=== PATIENT | male | born 1980 | race Caucasian/White ===

== ENCOUNTER 2017-06-13 09:30 | Inpatient (IN) | payer BC ==
[2017-06-13 10:19] VITALS: BMI 20.3
--- NOTE | 2017-06-13 14:14 | HP ---
Admission [facility] Chief Complaint: REHAB TX FOR DRUG DEPENDENCE Allergies/Adverse Reactions: Allergies Allergy/AdvReac Type Severity Reaction Status Date / Time haloperidol [From Haldol] Allergy Severe Swelling Verified 06/13/17 11:22 haloperidol lactate Allergy Severe Swelling Verified 06/13/17 11:22 [From Haldol] History of Present Illness: 37 Y/O MALE WITH A HX COCAINE DEPENDENCE ON MMTP SEEKING REHAB. Exam Limitations: Clinical Condition - Ebola screening Have you traveled outside of the country in the last 21 days: No Have you had contact with anyone from an Ebola affected area: No Have you been sick,other than usual withdrawal symptoms: No Do you have a fever: No - Review of Systems Constitutional: Chills, Loss of Appetite, Night Sweats, Changes in sleep, Unintentional Wgt. Loss EENT: reports: Tearing, Nose Congestion, Dental Problems (MISSING MAJORITY OF TEETH) Respiratory: reports: Shortness of Breath (ASTHMA), Wheezing Cardiac: reports: No Symptoms Reported GI: reports: Diarrhea, Nausea, Poor Appetite, Poor Fluid Intake, Vomiting : reports: No Symptoms Reported Musculoskeletal: reports: Back Pain, Joint Pain, Muscle Pain Integumentary: reports: No Symptoms Reported Neuro: reports: Headache, Seizure ( X 3 DUE TO DRUGS.), Tremors, Dizziness Endocrine: reports: No Symptoms Reported Hematology: reports: Anemia Psychiatric: reports: Orientated x3, Anxious, Depressed Other Systems: Reviewed and Negative Patient History - Patient Medical History Hx Anemia: No Hx Asthma: Yes (MDI) Hx Cardiac Disorders: No Hx Hypertension: Yes (CATAPRES 0.1 BID) Hx Hypercholesterolemia: No HX Cerebrovascular Accident: No Hx Seizures: Yes (X 3 DUE TO DRUGS) Hx Diabetes: No Hx Gastrointestinal Disorders: Yes (PRILOSEC) Hx Genitourinary Disorders: No Hx Sexually Transmitted Disorders: No Hx Renal Disease (ESRD): Yes (GALLBLADDER SX; KIDNEY STONES) Hx Thyroid Disease: No Hx Human Immunodeficiency Virus (HIV): No (NEGATIVE HX) Hx Hepatitis C: No Hx Depression: Yes Hx Suicide Attempt: Yes (CUT WRIST 2014;DENIES S/H/I TODAY) Hx Schizophrenia: Yes - Patient Surgical History Past Surgical History: Yes Hx Neurologic Surgery: No Hx Cataract Extraction: No Hx Cardiac Surgery: No Hx Lung Surgery: No Hx Breast Surgery: No Hx Breast Biopsy: No Hx Abdominal Surgery: No Hx Appendectomy: No Hx Cholecystectomy: Yes (IN 2013) Hx Genitourinary Surgery: No Hx Orthopedic Surgery: No Anesthesia Reaction: No - PPD History Previous Implant?: Yes Documented Results: Negative w/o proof Implanted On Prior R Admission?: No PPD to be Administered?: Yes - Reproductive History Patient is a Female of Child Bearing Age (11 -55 yrs old): No (MALE) Patient : Yes (N/A) - Smoking Cessation Smoking history: Current every day smoker Have you smoked in the past 12 months: Yes Aproximately how many cigarettes per day: 8 Hx Chewing Tobacco Use: No Initiated information on smoking cessation: Yes 'Breaking Loose' booklet given: 06/13/17 - Substance & Tx. History Hx Alcohol Use: No Hx Substance Use: Yes (COCAINE) Substance Use Type: Cocaine Hx Substance Use Treatment: Yes ([facility]) - Substances Abused Cocaine Route: Injection Frequency: Daily Amount used: $150 Age of first use: 19 Date of Last Use: 06/13/17 Family Disease History - Family Disease History Family Disease History: Heart Disease: Father (), Other: Mother ( ) Admission Physical Exam S - Vital Signs Vital Signs: Vital Signs - 24 hr 06/13/17 10:16 Temperature 96 F L Pulse Rate 92 H Respiratory 20 Rate Blood Pressure 145/88 - Physical General Appearance: Yes: No Apparent Distress, Anxious HEENTM: Yes: EOMI, Normocephalic, FRANCHESCA, Pharynx Normal Respiratory: Yes: Chest Non-Tender, Lungs Clear, Normal Breath Sounds, No Respiratory Distress Neck: Yes: No masses,lesions,Nodules, Supple, Trachea in good position Breast: Yes: Breast Exam Deferred Cardiology: Yes: Regular Rhythm, Regular Rate, S1, S2 Abdominal: Yes: Normal Bowel Sounds, Non Tender, Flat, Soft Genitourinary: Yes: Other (N/C) Back: Yes: Within Normal Limits Musculoskeletal: Yes: full range of Motion, Gait Steady Extremities: Yes: Normal Range of Motion, Non-Tender Neurological: Yes: school physical therapist II-XII NML intact, Fully Oriented, Alert Integumentary: Yes: Dry, Warm Lymphatic: Yes: Within Normal Limits - Diagnostic (1) Cocaine dependence, uncomplicated Current Visit: Yes Status: Chronic (2) Methadone maintenance therapy patient Current Visit: Yes Status: Chronic (3) Asthma Current Visit: Yes Status: Chronic Qualifiers: Asthma severity: mild intermittent Asthma complication type: uncomplicated Qualified Code(s): J45.20 - Mild intermittent asthma, uncomplicated (4) Hypertension Current Visit: Yes Status: Chronic Qualifiers: Hypertension type: essential hypertension Qualified Code(s): I10 - Essential (primary) hypertension (5) GERD (gastroesophageal reflux disease) Current Visit: Yes Status: Chronic Qualifiers: Esophagitis presence: without esophagitis Qualified Code(s): K21.9 - Gastro-esophageal reflux disease without esophagitis Cleared for Admission [facility] - Detox or Rehab Claeared for Rehab Admission: Yes [facility] Breath Alcohol Content Breath Alcohol Content: 0 Urine Drug Screen - Results Drug Screen Negative: No Urine Drug Screen Results: RJ-Cocaine, MTD-Methadone
[2017-06-13] MEDS ORDERED: P-EPHED 60MG/TRIPROLIDI 2.5MG TABLET PO PRN (14:33)
[2017-06-13] MEDS ORDERED: IBUPROFEN 400 MG TABLET (FP) PO PRN (14:33)
[2017-06-13] MEDS ORDERED: guaiFENesin/D-METHORPHAN HB 10 ML UNIT-DOSE CUPS PO PRN (14:33)
[2017-06-13] MEDS ORDERED: LOPERAMIDE HCL 2 MG CAPSULE PO PRN (14:33)
[2017-06-13] MEDS ORDERED: MAGNESIUM HYDROX 2400MG/30ML ORAL SUSPENSION 30 ML CUP PO PRN (14:33)
[2017-06-13] MEDS ORDERED: NICOTINE POLACRILEX 2 MG GUM BUC PRN (14:33)
[2017-06-13] MEDS ORDERED: diphenhydrAMINE HCL 50 MG CAPSULE PO PRN (14:33)
[2017-06-13] MEDS ORDERED: hydrOXYzine PAMOATE 50 MG CAPSULE (FP) PO PRN (14:33)
[2017-06-13] MEDS ORDERED: ACETAMINOPHEN 325 MG TABLET (FP) PO PRN (14:33)
[2017-06-13] MEDS ORDERED: MAGNESIUM CITRATE 300 ML BOTTLE PO PRN (14:33)
[2017-06-13] MEDS ORDERED: MENTHOL/PHENOL 1 EACH UD MM PRN (14:33)
[2017-06-13 17:47] LABS: MCHC 32.5 g/dl (32.0-35.9); MEAN CELL VOLUME 76.9 fl (80-96); MEAN PLT VOLUME 9.5 fl (7.5-11.1); PLATELET COUNT 232 K/MM3 (134-434); RDW 17.3 % (11.9-15.9); WHITE BLOOD COUNT 5.2 K/mm3 (4.0-10.0)
[2017-06-13] MEDS ORDERED: TUBERCULIN PPD 5 TU/0.1ML VIAL ID ONE (18:07)
[2017-06-13] MEDS: NICOTINE 14 MG/24 HOURS TOPICAL PATCH TD SCH (18:10)
[2017-06-13 18:26] LABS: ALBUMIN 3.7 g/dl (3.4-5.0); ALK PHOS 94 U/L (45-117); ANION GAP 9 (8-16); BILIRUBIN,TOTAL 0.2 mg/dL (0.2-1.0); CALCIUM 8.7 mg/dL (8.5-10.1); CO2 26 mmol/L (21-32); CREATININE 0.8 mg/dL (0.7-1.3); GLUCOSE,RANDOM 109 mg/dL (74-106); SGOT/AST 11 U/L (15-37); SGPT/ALT 17 U/L (12-78); TOT PROT 6.3 g/dl (6.4-8.2)
[2017-06-13] MEDS: THIAMINE HCL 100 MG TABLET (FP) PO SCH (22:24)
[2017-06-14] MEDS ORDERED: METHADONE HCL 10 MG TABLET ONE (06:58)
[2017-06-14] MEDS ORDERED: METHADONE HCL 40 MG DISPERSABLE TABLET ONE (06:59)
[2017-06-14] MEDS ORDERED: METHADONE HCL 40 MG DISPERSABLE TABLET PO SCH (07:00)
[2017-06-14] MEDS: METHADONE 160 MG, METHADONE 20 MG PO SCH (07:00)
--- NOTE | 2017-06-14 09:31 | HP ---
Psychiatrist Admission - Data Date of interview: 06/14/17 Admission source: [facility] Identifying data: This is the first 5N inpatient rehabilitation admission for this 37 year old male, father of 4 (15,14,11,9) homeles and supported by welfare. Medical History: HTN, Asthma and seizures, smokes cigarettes 7 a day. On MMTP 180 mg/daily. Psychiatric History: Patient reports was diagnosed with PTSD and Bipolar Disorder, reports several psychiatric hospitalizations, with most recent last year at [facility] due to depression and suicidal thoughts, admits history of suicidal attempts,last in 2013, states he sees the psychiatrist at [facility] in the [place] and currently on Gabapentin 400 mg po q 8hrs, Seroquel 200 mg po bid, Lamictal 25 mg dailt, Zoloft 100 mg po daily. Physical/Sexual Abuse/Trauma History: Denies history of sexual, physical and verbal absue. Served in [employer] 6 years, states his PTSD related to his service, did not provide with details. Additional Comment: States he lost his from pneumonia 6 years ago, all his 4 children with his God parents, have not see them more than a year. Vital Signs: Vital Signs - 24 hr 06/13/17 06/14/17 06/14/17 10:16 00:42 03:30 Temperature 96 F L Pulse Rate 92 H Respiratory 20 18 18 Rate Blood Pressure 145/88 06/14/17 06:54 Temperature 97.4 F L Pulse Rate 78 Respiratory 18 Rate Blood Pressure 140/78 Allergies/Adverse Reactions: Allergies Allergy/AdvReac Type Severity Reaction Status Date / Time haloperidol [From Haldol] Allergy Severe Swelling Verified 06/13/17 11:22 haloperidol lactate Allergy Severe Swelling Verified 06/13/17 11:22 [From Haldol] Date of last physical exam: 06/13/17 Concur with the findings of this exam: Yes - Substance Abuse/Tx History Hx Alcohol Use: No Hx Substance Use: Yes Substance Use Type: Cocaine (age of first use 19, daily $150 injecting ), Prescribed (states was on klonopin for seizures, last took on 06/11) Hx Substance Use Treatment: Yes ([facility], ) - Admission Criteria Previous failed treatment: Yes Poor recovery environment: Yes Comorbidities: Yes Lacks judgement: Yes Mental Status Exam - Mental Status Exam Alert and Oriented to: Time, Place, Person Cognitive Function: Grossly Intact Patient Appearance: Unkempt Mood: Anxious, Irritable Affect: Mood Congruent, Blunted Patient Behavior: Sedated, Cooperative Speech Pattern: Clear Voice Loudness: Normal Thought Process: Goal Oriented Thought Disorder: Not Present Hallucinations: Denies Suicidal Ideation: Denies Homicidal Ideation: Denies Insight/Judgement: Fair Sleep: Fair Appetite: Fair Muscle strength/Tone: Normal Gait/Station: Normal Psychiatric Findings - Problem List ([place] 1, 2,3) (1) Asthma Current Visit: Yes Status: Chronic Qualifiers: Asthma severity: mild intermittent Asthma complication type: uncomplicated Qualified Code(s): J45.20 - Mild intermittent asthma, uncomplicated (2) GERD (gastroesophageal reflux disease) Current Visit: Yes Status: Chronic Qualifiers: Esophagitis presence: without esophagitis Qualified Code(s): K21.9 - Gastro-esophageal reflux disease without esophagitis (3) Methadone maintenance therapy patient Current Visit: Yes Status: Chronic (4) Opioid dependence Current Visit: Yes Status: Acute (5) Cocaine dependence Current Visit: Yes Status: Acute (6) Nicotine dependence Current Visit: Yes Status: Acute (7) PTSD (post-traumatic stress disorder) Current Visit: Yes Status: Acute (8) Bipolar 1 disorder Current Visit: Yes Status: Acute - Initial Treatment Plan Initial Treatment Plan: to continue his current medications, monitor progress as needed.
[2017-06-14] MEDS: PRENATAL VITAMINS W/ FOLIC ACID TABLET (FP) PO SCH (09:51)
[2017-06-14] MEDS: NICOTINE 14 MG/24 HOURS TOPICAL PATCH TD SCH (09:51)
[2017-06-14] MEDS: GABAPENTIN 400 MG CAPSULE (FP) PO SCH ×3 (11:13→21:12)
[2017-06-14] MEDS: SERTRALINE HCL 50 MG TABLET (FP) PO SCH (11:14)
[2017-06-14] MEDS: THIAMINE HCL 100 MG TABLET (FP) PO SCH (21:12)
[2017-06-14] MEDS: QUEtiapine FUMARATE 200 MG TABLET PO SCH (21:12)
[2017-06-14] MEDS: cloNIDine HCL 0.1 MG TABLET PO SCH (21:12)
[2017-06-15] MEDS ORDERED: METHADONE HCL 10 MG TABLET ONE (05:18)
[2017-06-15] MEDS ORDERED: METHADONE HCL 40 MG DISPERSABLE TABLET ONE (05:19)
[2017-06-15] MEDS: METHADONE 160 MG, METHADONE 20 MG PO SCH (06:45)
[2017-06-15] MEDS: GABAPENTIN 400 MG CAPSULE (FP) PO SCH ×3 (06:45→21:17)
[2017-06-15] MEDS: SERTRALINE HCL 50 MG TABLET (FP) PO SCH (09:50)
[2017-06-15] MEDS: lamoTRIgine 25 MG TABLET PO SCH (09:51)
[2017-06-15] MEDS: cloNIDine HCL 0.1 MG TABLET PO SCH ×2 (09:51→21:17)
[2017-06-15] MEDS: QUEtiapine FUMARATE 200 MG TABLET PO SCH ×2 (09:51→21:17)
[2017-06-15] MEDS: PRENATAL VITAMINS W/ FOLIC ACID TABLET (FP) PO SCH (09:51)
[2017-06-15] MEDS: NICOTINE 14 MG/24 HOURS TOPICAL PATCH TD SCH (10:49)
[2017-06-15] MEDS: THIAMINE HCL 100 MG TABLET (FP) PO SCH (21:17)
[2017-06-16] MEDS ORDERED: METHADONE HCL 40 MG DISPERSABLE TABLET ONE (03:20)
[2017-06-16] MEDS ORDERED: METHADONE HCL 10 MG TABLET ONE (03:20)
[2017-06-16] MEDS: GABAPENTIN 400 MG CAPSULE (FP) PO SCH ×3 (06:24→21:10)
[2017-06-16] MEDS: METHADONE 160 MG, METHADONE 20 MG PO SCH (06:24)
[2017-06-16] MEDS: lamoTRIgine 25 MG TABLET PO SCH (09:53)
[2017-06-16] MEDS: PRENATAL VITAMINS W/ FOLIC ACID TABLET (FP) PO SCH (09:53)
[2017-06-16] MEDS: SERTRALINE HCL 50 MG TABLET (FP) PO SCH (09:53)
[2017-06-16] MEDS: QUEtiapine FUMARATE 200 MG TABLET PO SCH ×2 (09:53→21:10)
[2017-06-16] MEDS: NICOTINE 14 MG/24 HOURS TOPICAL PATCH TD SCH (09:54)
[2017-06-16] MEDS: cloNIDine HCL 0.1 MG TABLET PO SCH (09:54)
[2017-06-16] MEDS: THIAMINE HCL 100 MG TABLET (FP) PO SCH (21:10)
[2017-06-17] MEDS ORDERED: METHADONE HCL 10 MG TABLET ONE (03:21)
[2017-06-17] MEDS ORDERED: METHADONE HCL 40 MG DISPERSABLE TABLET ONE (03:22)
[2017-06-17] MEDS: METHADONE 160 MG, METHADONE 20 MG PO SCH (06:46)
[2017-06-17] MEDS: GABAPENTIN 400 MG CAPSULE (FP) PO SCH ×3 (06:46→21:13)
[2017-06-17] MEDS: SERTRALINE HCL 50 MG TABLET (FP) PO SCH (09:47)
[2017-06-17] MEDS: lamoTRIgine 25 MG TABLET PO SCH (09:47)
[2017-06-17] MEDS: QUEtiapine FUMARATE 200 MG TABLET PO SCH ×2 (09:47→21:13)
[2017-06-17] MEDS: PRENATAL VITAMINS W/ FOLIC ACID TABLET (FP) PO SCH (09:48)
[2017-06-17] MEDS: NICOTINE 14 MG/24 HOURS TOPICAL PATCH TD SCH (09:48)
[2017-06-17] MEDS: THIAMINE HCL 100 MG TABLET (FP) PO SCH (21:13)
[2017-06-18] MEDS ORDERED: METHADONE HCL 10 MG TABLET ONE (03:49)
[2017-06-18] MEDS ORDERED: METHADONE HCL 40 MG DISPERSABLE TABLET ONE (03:50)
[2017-06-18] MEDS: METHADONE 160 MG, METHADONE 20 MG PO SCH (06:35)
[2017-06-18] MEDS: GABAPENTIN 400 MG CAPSULE (FP) PO SCH ×3 (06:35→21:15)
[2017-06-18] MEDS: MAG HYDROX/AL HYDROX/SIMETH 30 ML UNIT-DOSE CUP PO PRN (09:05)
[2017-06-18] MEDS: NICOTINE 14 MG/24 HOURS TOPICAL PATCH TD SCH (10:04)
[2017-06-18] MEDS: PRENATAL VITAMINS W/ FOLIC ACID TABLET (FP) PO SCH (10:04)
[2017-06-18] MEDS: lamoTRIgine 25 MG TABLET PO SCH (10:04)
[2017-06-18] MEDS: SERTRALINE HCL 50 MG TABLET (FP) PO SCH (10:04)
[2017-06-18] MEDS: QUEtiapine FUMARATE 200 MG TABLET PO SCH ×2 (10:04→21:15)
--- NOTE | 2017-06-18 18:38 | EKG ---
Test Reason : Blood Pressure : / mmHG Vent. Rate : 065 BPM Atrial Rate : 065 BPM P-R Int : 136 ms QRS Dur : 092 ms QT Int : 418 ms P-R-T Axes : 076 071 069 degrees QTc Int : 434 ms NORMAL SINUS RHYTHM WITH SINUS ARRHYTHMIA NONSPECIFIC ST-T ABNORMALITIES NO PREVIOUS ECGS AVAILABLE EKG PRESENTED ON JUN 18 2017 REPEAT EKG IF CLINICALLY INDICATED Confirmed by BERTHA MELO MD ([id number]) on 06/18/2017 6:38:14 PM Referred By: Josette Anguiano Confirmed By:BERTHA MELO MD
[2017-06-18] MEDS: THIAMINE HCL 100 MG TABLET (FP) PO SCH (21:15)
[2017-06-19] MEDS ORDERED: METHADONE HCL 10 MG TABLET ONE (05:47)
[2017-06-19] MEDS ORDERED: METHADONE HCL 40 MG DISPERSABLE TABLET ONE (05:48)
[2017-06-19] MEDS: GABAPENTIN 400 MG CAPSULE (FP) PO SCH ×3 (06:27→21:13)
[2017-06-19] MEDS: METHADONE 160 MG, METHADONE 20 MG PO SCH (06:28)
[2017-06-19] MEDS: PRENATAL VITAMINS W/ FOLIC ACID TABLET (FP) PO SCH (10:01)
[2017-06-19] MEDS: QUEtiapine FUMARATE 200 MG TABLET PO SCH ×2 (10:01→21:13)
[2017-06-19] MEDS: SERTRALINE HCL 50 MG TABLET (FP) PO SCH (10:01)
[2017-06-19] MEDS: NICOTINE 14 MG/24 HOURS TOPICAL PATCH TD SCH (10:01)
[2017-06-19] MEDS: lamoTRIgine 25 MG TABLET PO SCH (10:01)
[2017-06-19] MEDS: THIAMINE HCL 100 MG TABLET (FP) PO SCH (21:13)
[2017-06-20] MEDS ORDERED: METHADONE HCL 40 MG DISPERSABLE TABLET ONE (05:04)
[2017-06-20] MEDS ORDERED: METHADONE HCL 10 MG TABLET ONE (05:04)
[2017-06-20] MEDS: GABAPENTIN 400 MG CAPSULE (FP) PO SCH (06:24)
[2017-06-20] MEDS: METHADONE 160 MG, METHADONE 20 MG PO SCH (06:24)
[2017-06-20] MEDS: MAG HYDROX/AL HYDROX/SIMETH 30 ML UNIT-DOSE CUP PO PRN (06:25)
[2017-06-20 07:05] VITALS: BP 104/67; PULSE 70; TEMP 98
[2017-06-20] MEDS: SERTRALINE HCL 50 MG TABLET (FP) PO SCH (10:10)
[2017-06-20] MEDS: PRENATAL VITAMINS W/ FOLIC ACID TABLET (FP) PO SCH (10:10)
[2017-06-20] MEDS: QUEtiapine FUMARATE 200 MG TABLET PO SCH (10:10)
[2017-06-20] MEDS: NICOTINE 14 MG/24 HOURS TOPICAL PATCH TD SCH (10:10)
[2017-06-20] MEDS: lamoTRIgine 25 MG TABLET PO SCH (10:11)
--- NOTE | 2017-06-20 10:35 | PN ---
Psychiatric Progress Note Vital Signs: Vital Signs Period Temp Pulse Resp BP Sys/Heller Pulse Ox Last 24 Hr 98.0 F 70 16-18 104/67 Date of Session: 06/20/17 Chief Complaint:: discharge visit HPI: Patient has addressed cocaine,opioid, nicotine dependence comorbid PTSD and Bipolar I disorder. ROS: HTN, Asthma and seizures medically managed. Current Medications: Active Medications Generic Name Dose Route Start Last Admin Trade Name Freq PRN Reason Stop Dose Admin Acetaminophen 650 mg 06/13/17 14:33 Tylenol - PO Q4H PRN FEVER OR PAIN Al Hydroxide/Mg Hydroxide 30 ml 06/13/17 14:33 06/20/17 06:25 Mylanta Oral Suspension - PO 30 ml Q6H PRN Administration DYSPEPSIA Diphenhydramine HCl 50 mg 06/13/17 14:33 06/13/17 22:24 Benadryl - PO 50 mg HSMR1 PRN Administration FOR ITCHING Eucalyptus/Menthol/Phenol/Sorbitol 1 each 06/13/17 14:33 Cepastat Lozenge - MM Q4H PRN SORE THROAT Gabapentin 400 mg 06/14/17 11:30 06/20/17 06:24 Neurontin - PO 400 mg TID MIA Administration Guaifenesin 10 ml 06/13/17 14:33 Robitussin Dm - PO Q6H PRN COUGH Hydroxyzine Pamoate 50 mg 06/13/17 14:33 06/14/17 09:52 Vistaril - PO 50 mg Q4H PRN Administration AGITATION Ibuprofen 400 mg 06/13/17 14:33 06/14/17 15:47 Motrin - PO 400 mg Q6H PRN Administration PAIN Lamotrigine 25 mg 06/15/17 10:00 06/20/17 10:11 Lamictal - PO 25 mg DAILY MIA Administration Loperamide HCl 4 mg 06/13/17 14:33 Imodium - PO Q6H PRN DIARRHEA Magnesium Hydroxide 30 ml 06/13/17 14:33 Milk Of Magnesia - PO DAILY PRN CONSTIPATION Methadone HCl 160 mg/ 180 mg 06/14/17 07:00 06/20/17 06:24 Methadone HCl 20 mg PO 180 mg DAILY@0600 MIA Administration Nicotine 14 mg 06/13/17 15:00 06/20/17 10:10 Nicoderm Patch - TD Not Given DAILY MIA Nicotine Polacrilex 2 mg 06/13/17 14:33 Nicorette Gum - BUC Q2H PRN NICOTINE REPLACEMENT RX Multivit/Folic Acid/Iron 1 tab 06/14/17 10:00 06/20/17 10:10 Vitamins (Sjr) - PO Not Given DAILY MIA Pseudoephedrine/Triprolidine 1 combo 06/13/17 14:33 Actifed - PO TID PRN NASAL CONGESTION Quetiapine Fumarate 200 mg 06/14/17 22:00 06/20/17 10:10 Seroquel - PO 200 mg BID MIA Administration Sertraline HCl 100 mg 06/14/17 11:30 06/20/17 10:10 Zoloft - PO 100 mg DAILY MIA Administration Thiamine HCl 100 mg 06/13/17 22:00 06/19/17 21:13 Vitamin B1 - PO Not Given HS MIA Current Side Effect: No Lab tests ordered: No Lab tests reviewed: Yes Provider note:: Patient requested for earlier discharge today, has completed 7 days and met his goals, he will continue to address his issues at [facility] and [facility] outpatient treatment program, where he will f/u as well by his psychiatrist . Patient gained insights into importance of changing attitudes for the utilization of supports to prevent relapses. He was educated on his addiction, implications and consequences on his physical and mental health, the importance to maintain sobriety, educated on smoking cessation. Medications Seroquel Gabapentin, Lamictal and Zoloft well tolerated, patient reports he is feeling better, less anxious, mood is stable and sleep improved. Scripts provided for 30 days. Supportive psychotherapy provided, patient is stable for discharge today Total face to face time:: 35 Mental Status Exam - Mental Status Exam Alert and Oriented to: Time, Place, Person Cognitive Function: Good Patient Appearance: Well Groomed Mood: Hopeful Affect: Appropriate, Mood Congruent Patient Behavior: Appropriate, Cooperative Speech Pattern: Clear, Appropriate Voice Loudness: Normal Thought Process: Intact, Goal Oriented Thought Disorder: Not Present Hallucinations: Denies Suicidal Ideation: Denies Homicidal Ideation: Denies Insight/Judgement: Fair Sleep: Fair Appetite: Fair Muscle strength/Tone: Normal Gait/Station: Normal Psychiatric Treatment Plan - Problem List (1) Asthma Current Visit: Yes Qualifiers: Asthma severity: mild intermittent Asthma complication type: uncomplicated Qualified Code(s): J45.20 - Mild intermittent asthma, uncomplicated (2) GERD (gastroesophageal reflux disease) Current Visit: Yes Qualifiers: Esophagitis presence: without esophagitis Qualified Code(s): K21.9 - Gastro-esophageal reflux disease without esophagitis (3) Methadone maintenance therapy patient Current Visit: Yes (4) Opioid dependence Current Visit: Yes (5) Cocaine dependence Current Visit: Yes (6) Nicotine dependence Current Visit: Yes (7) PTSD (post-traumatic stress disorder) Current Visit: Yes (8) Bipolar 1 disorder Current Visit: Yes
== END 2017-06-20 10:30 | disposition home or self-care (01) | DRG 772 ==
LOC: YASAS 09:30 → Y5N 11:57
PROVIDERS: ADMIT Psychiatry & Neurology Psychiatry; ATTEND Psychiatry & Neurology Psychiatry
PROC: HZ42ZZZ Group Counseling for Substance Abuse Treatment, Cognitive-Behavioral (ICD-10-PCS; principal; 2017-06-13)
DX: F14.20 Cocaine dependence, uncomplicated (principal); F12.20 Cannabis dependence, uncomplicated; F17.210 Nicotine dependence, cigarettes, uncomplicated; F43.10 Post-traumatic stress disorder, unspecified; F31.9 Bipolar disorder, unspecified; J45.20 Mild intermittent asthma, uncomplicated; K21.9 Gastro-esophageal reflux disease without esophagitis; I10 Essential (primary) hypertension; Z88.8 Allergy status to other drugs, medicaments and biological substances; Z86.69 Personal history of other diseases of the nervous system and sense organs; Z87.442 Personal history of urinary calculi; Z91.5 Personal history of self-harm
CPT/HCPCS: 36415; 80053; 85027; 86593; 93005; 93010

== ENCOUNTER 2019-11-12 12:26 | Inpatient (IN) | payer BC ==
[2019-11-12 15:48] VITALS: BMI 20.9
--- NOTE | 2019-11-12 16:51 | HP ---
CIWA Score Nausea/Vomitin Muscle Tremors: 3 Anxiety: 3 Agitation: 2 Paroxysmal Sweats: 3 Orientation: 0-Oriented Tacttile Disturbances: 2-Mild Itch/Numbness/Burn Auditory Disturbances: 0-None Visual Disturbances: 0-None Headache: 2-Mild CIWA-Ar Total Score: 17 - Admission Criteria OASAS Guidelines: Admission for Medically Managed Detox: Requires at least one of the followin. CIWA greater than 12 2. Seizures within the past 24 hours 3. Delirium tremens within the past 24 hours 4. Hallucinations within the past 24 hours 5. Acute intervention needed for co occurring medical disorder 6. Acute intervention needed for co occurring psychiatric disorder 7. Severe withdrawal that cannot be handled at a lower level of care (continued vomiting, continued diarrhea, abnormal vital signs) requiring intravenous medication and/or fluids 8. Admitting History and Physical - Admission Chief Complaint: "i'm here for detox". History of Present Illness: 39years old male with history of asthma, HTN, bipolar, PTSD, cannabis, alcohol, heroin, and cocaine use disorder who presents here today requesting for alcohol detox. [facility] and states his attempts to remain sober has failed and plan to go to rehab after detox completion for continued management. Pt is on methadone 180mg po daily at [facility] in the [place]. Last dose on 11/12/19. dose to be confirmed in AM. History Source: Patient Limitations to Obtaining History: No Limitations - Past Medical History Cardiovascular: Yes: HTN Pulmonary: Yes: Asthma Psych: Yes: Addictions, Bipolar, Other (H/O PTSD) - Smoking History Smoking history: Current every day smoker Have you smoked in the past 12 months: Yes Aproximately how many cigarettes per day: 10 - Alcohol/Substance Use Hx Alcohol Use: Yes History of Substance Use: reports: Cocaine, Heroin, Marijuana - Social History Usual Living Arrangement: Yes: Alone, Other (Homeless) Do you think of yourself as: Straight/Heterosexual ADL: Independent History of Recent Travel: No Admission ROS [facility] - HPI Allergies/Adverse Reactions: Allergies Allergy/AdvReac Type Severity Reaction Status Date / Time haloperidol [From Haldol] Allergy Severe Swelling Verified 11/12/19 15:39 haloperidol lactate Allergy Severe Swelling Verified 11/12/19 15:39 [From Haldol] Exam Limitations: No Limitations - Ebola screening Have you traveled outside of the country in the last 21 days: No Have you had contact with anyone from an Ebola affected area: No Have you been sick,other than usual withdrawal symptoms: No Do you have a fever: No - Review of Systems Constitutional: Chills, Loss of Appetite, Night Sweats EENT: reports: No Symptoms Reported Respiratory: reports: Cough Cardiac: reports: No Symptoms Reported GI: reports: Nausea, Poor Appetite, Abdominal cramping : reports: No Symptoms Reported Musculoskeletal: reports: Back Pain Integumentary: reports: No Symptoms Reported, Sweating Neuro: reports: Headache, Numbness, Tremors Endocrine: reports: No Symptoms Reported Hematology: reports: No Symptoms Reported Psychiatric: reports: Mood/Affect Appropiate, Anxious Other Systems: Reviewed and Negative Patient History - Patient Medical History Hx Anemia: No Hx Asthma: Yes (MDI) Hx Chronic Obstructive Pulmonary Disease (COPD): No Hx Cardiac Disorders: No Hx Hypertension: Yes Hx Hypercholesterolemia: No HX Cerebrovascular Accident: No Hx Seizures: Yes (1and 1/2 years ago.) Hx Diabetes: No Hx Gastrointestinal Disorders: No Hx Liver Disease: No Hx Genitourinary Disorders: No Hx Sexually Transmitted Disorders: No Hx Renal Disease (ESRD): No Hx Thyroid Disease: No Hx Human Immunodeficiency Virus (HIV): No (NEGATIVE last test 2018.) Hx Hepatitis C: No Hx Depression: Yes Hx Suicide Attempt: Yes (3years ago tried to cut his wrist.) Hx Bipolar Disorder: Yes - Patient Surgical History Past Surgical History: Yes Hx Neurologic Surgery: No Hx Cataract Extraction: No Hx Cardiac Surgery: No Hx Lung Surgery: No Hx Breast Surgery: No Hx Breast Biopsy: No Hx Abdominal Surgery: No Hx Appendectomy: No Hx Cholecystectomy: Yes (IN 2013) Hx Genitourinary Surgery: No Hx Orthopedic Surgery: No Anesthesia Reaction: No - PPD History Previous Implant?: Yes Date: 06/15/17 PPD to be Administered?: Yes - Smoking Cessation Smoking history: Current every day smoker Have you smoked in the past 12 months: Yes Aproximately how many cigarettes per day: 10 Hx Chewing Tobacco Use: No Initiated information on smoking cessation: Yes 'Breaking Loose' booklet given: 11/12/19 - Substance & Tx. History Hx Alcohol Use: Yes Hx Substance Use: Yes Substance Use Type: Alcohol, Cocaine, Heroin, Marijuana Hx Substance Use Treatment: Yes (Pt is on methadone 180mg po daily at [facility]) - Substances abused Alcohol Substance route: Oral Frequency: Daily Amount used: 10/18 vodka Age of first use: 15 Date of last use: 11/12/19 Cocaine Substance route: Smoking Frequency: Daily Amount used: 3 grams Age of first use: 20 Date of last use: 11/12/19 Marijuana/Hashish Substance route: Smoking Frequency: Daily Amount used: 10/21 Age of first use: 16 Date of last use: 11/11/19 Admission Physical Exam [facility] - Vital Signs Vital Signs: Vital Signs - 24 hr 11/12/19 15:44 Temperature 97.2 F L Pulse Rate 70 Respiratory 18 Rate Blood Pressure 134/77 - Physical General Appearance: Yes: No Apparent Distress, Tremorous, Irritable, Sweating, Anxious HEENTM: Yes: EOMI, Hearing grossly Normal, Normocephalic, Normal Voice, FRANCHESCA, Pharynx Normal Respiratory: Yes: Chest Non-Tender, Lungs Clear, Normal Breath Sounds, No Respiratory Distress Neck: Yes: No masses,lesions,Nodules, Trachea in good position Breast: Yes: Within Normal Limits Cardiology: Yes: Regular Rhythm, Regular Rate, S1, S2 Abdominal: Yes: Normal Bowel Sounds, Non Tender, Flat, Soft Genitourinary: Yes: Within Normal Limits Back: Yes: Normal Inspection Musculoskeletal: Yes: full range of Motion, Gait Steady Extremities: Yes: Normal Capillary Refill, Normal Range of Motion, Non-Tender, Tremors, Other (B/l foot lesions.) Neurological: Yes: Alert, Motor Strength 5/5, Normal Mood/Affect, Normal Response Integumentary: Yes: Dry, Warm Lymphatic: Yes: Within Normal Limits - Diagnostic (1) Cannabis use disorder, mild, abuse Current Visit: Yes Status: Chronic (2) Bipolar 1 disorder Current Visit: No Status: Chronic (3) Nicotine dependence Current Visit: No Status: Chronic (4) PTSD (post-traumatic stress disorder) Current Visit: No Status: Chronic (5) Asthma Current Visit: No Status: Chronic Qualifiers: Asthma severity: mild intermittent Asthma complication type: uncomplicated (6) Hypertension Current Visit: No Status: Chronic Qualifiers: Hypertension type: essential hypertension Qualified Code(s): I10 - Essential (primary) hypertension (7) Methadone maintenance therapy patient Current Visit: No Status: Chronic Cleared for Admission S - Detox or Rehab [facility] Level of Care: Medically Managed Detox Regimen/Protocol: Librium Claeared for Rehab Admission: No Breathalyzer - Breathalyzer Breathalyzer: 0 Urine Drug Screen - Test Device Lot number: [id number] Expiration date: 09/07/21 - Control Is test valid?: Yes - Results Drug screen NEGATIVE: No Urine drug screen results: THC-Marijuana, RJ-Cocaine, MTD-Methadone Inpatient Rehab Admission - Rehab Decision to Admit Inpatient rehab admission?: No
[2019-11-12] MEDS ORDERED: PROCHLORPERAZINE MALEATE 5 MG TABLET PO PRN (17:07)
[2019-11-12] MEDS ORDERED: BISMUTH SUBSALICYLATE 524 MG/30 ML UD PO PRN (17:07)
[2019-11-12] MEDS ORDERED: MELATONIN 5 MG TABLETS PO PRN (17:07)
[2019-11-12] MEDS ORDERED: METHOCARBAMOL 500 MG TABLET PO PRN (17:07)
[2019-11-12] MEDS ORDERED: guaiFENesin 200 MG/10 ML 10 ML UNIT-DOSE CUPS PO PRN (17:07)
[2019-11-12] MEDS ORDERED: MAG HYDROX/AL HYDROX/SIMETH 30 ML UNIT-DOSE CUP PO PRN (17:07)
[2019-11-12] MEDS ORDERED: MAGNESIUM CITRATE 300 ML BOTTLE PO PRN (17:07)
[2019-11-12] MEDS ORDERED: MAGNESIUM HYDROX 2400MG/30ML ORAL SUSPENSION 30 ML CUP PO PRN (17:07)
[2019-11-12] MEDS ORDERED: P-EPHED 60MG/TRIPROLIDI 2.5MG TABLET PO PRN (17:07)
[2019-11-12] MEDS ORDERED: ACETAMINOPHEN 325 MG TABLET (FP) PO PRN ×2 (17:07)
[2019-11-12] MEDS ORDERED: NICOTINE POLACRILEX 2 MG GUM BUC PRN (17:07)
[2019-11-12] MEDS ORDERED: IBUPROFEN 400 MG TABLET (FP) PO PRN (17:07)
[2019-11-12] MEDS ORDERED: hydrOXYzine PAMOATE 25 MG CAPSULE (FP) PO PRN (17:07)
[2019-11-12] MEDS ORDERED: MENTHOL/PHENOL 1 EACH UD MM PRN (17:07)
[2019-11-12] MEDS ORDERED: chlordiazePOXIDE HCL 25 MG CAPSULE PO ONE (17:12)
[2019-11-12] MEDS: chlordiazePOXIDE HCL 25 MG CAPSULE PO SCH (22:18)
[2019-11-12] MEDS: CLOTRIMAZOLE 1% CREAM 15 GM TUBE TP SCH (22:18)
[2019-11-12] MEDS: THIAMINE HCL 100 MG TABLET (FP) PO SCH (22:18)
[2019-11-13] MEDS: chlordiazePOXIDE HCL 25 MG CAPSULE PO SCH ×3 (05:33→21:59)
[2019-11-13] MEDS ORDERED: METHADONE HCL 10 MG TABLET PO SCH (09:45)
[2019-11-13 10:13] LABS: HEMOGLOBIN 13.4 GM/dL (11.7-16.9); MCH 28.2 pg (25.7-33.7); MCHC 33.5 g/dl (32.0-35.9); MEAN CELL VOLUME 84.2 fl (80-96); MEAN PLT VOLUME 9.5 fl (7.5-11.1); PLATELET COUNT 207 K/MM3 (134-434); RBC 4.75 M/mm3 (4.00-5.60); RDW 14.1 % (11.9-15.9); WHITE BLOOD COUNT 7.7 K/mm3 (4.0-10.0)
[2019-11-13 10:25] LABS: ALBUMIN 3.4 g/dl (3.4-5.0); BILIRUBIN,TOTAL 0.4 mg/dL (0.2-1); BLOOD UREA NITROGEN 16.6 mg/dL (7-18); CALCIUM 8.8 mg/dL (8.5-10.1); CREATININE 0.5 mg/dL (0.55-1.3); POTASSIUM 5.1 mmol/L (3.5-5.1); TOT PROT 6.3 g/dl (6.4-8.2)
[2019-11-13] MEDS ORDERED: METHADONE HCL 10 MG TABLET ONE (10:41)
[2019-11-13] MEDS ORDERED: METHADONE HCL 40 MG DISPERSABLE TABLET ONE (10:41)
[2019-11-13] MEDS: METHADONE 160 MG, METHADONE 20 MG PO SCH (10:45)
[2019-11-13] MEDS: CLOTRIMAZOLE 1% CREAM 15 GM TUBE TP SCH ×2 (10:47→21:58)
[2019-11-13] MEDS: NICOTINE 14 MG/24 HOURS TOPICAL PATCH TD SCH (10:47)
[2019-11-13] MEDS: PRENATAL VITAMINS W/ FOLIC ACID TABLET (FP) PO SCH (10:48)
--- NOTE | 2019-11-13 11:03 | CONSULT ---
[facility] Psychiatric Consult - Data Date of interview: 11/13/19 Admission source: [facility] Identifying data: Revisit to [facility] and admission to [address] [place] [address] for this 39 y/o male self-referred for detoxification treatment. SERGIO issues : alcohol , cocaine, cannabis, nicotine, heroin. Patient is , a father of four, homeless, unemployed and supported on welfare. Substance Abuse History: Discussed with patient. Details in current [facility] report as follows : Smoking history: Current every day smoker. Have you smoked in the past 12 months: Yes. Aproximately how many cigarettes per day: 10. Hx Chewing Tobacco Use: No. Initiated information on smoking cessation: Yes. 'Breaking Loose' booklet given: 11/12/19. - Substance & Tx. History. Hx Alcohol Use: Yes. Hx Substance Use: Yes. Substance Use Type: Alcohol, Cocaine, Heroin, Marijuana. Hx Substance Use Treatment: Yes (Pt is on methadone 180mg po daily at [facility]). - Substances abused. Alcohol. Substance route: Oral. Frequency: Daily. Amount used: 10/18 vodka. Age of first use: 15. Date of last use: 11/12/19. Cocaine. Substance route: Smoking. Frequency: Daily. Amount used: 3 grams. Age of first use: 20. Date of last use: . Marijuana/Hashish. Substance route: Smoking. Frequency: Daily. Amount used: 10/21. Age of first use: 16. Date of last use: 11/11/19 Medical History: Medical profile is remarkable for hypertension, withdrawal- related seizures, bronchial asthma and chronic lumbar pain. Patient endorses allergy to haloperidol. Psychiatric History: Patient admits to a history of multiple psychiatric hospitalizations ([facility] in [facility], [facility] in [place], [facility], [facility]). Reportedly diagnosed with PTSD and Bipolar Disorder. Mr Flannery indicates that he used to be followed at the [facility] in the [place] until he dropped out of [facility]PD care a few months ago. " My doctor left the clinic. I relied on my left over medications." Patient states that he has been prescribed seroquel + zoloft + olanzapine (doses not recalled). He is also on methadone maintenance (180 mg/day) at the [facility] program in the [place]. Patient reports history of two suicide attempts via wrist-cutting (most recent attempt occurred in 2013). 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 Discharge status not disclosed by patient. No reported history of abuse. Additional Comment: Urine drug screen results: THC-Marijuana, RJ-Cocaine, MTD- Methadone. Noted. Mental Status Exam - Mental Status Exam Alert and Oriented to: Time, Place, Person Cognitive Function: Good Patient Appearance: Unkempt, Disheveled Mood: Nervous, Withdrawn, Anxious Affect: Mood Congruent, Constricted Patient Behavior: Fatigued, Appropriate, Cooperative Speech Pattern: Clear, Appropriate Voice Loudness: Normal Thought Process: Goal Oriented Thought Disorder: Not Present Hallucinations: Denies Suicidal Ideation: Denies Homicidal Ideation: Denies Insight/Judgement: Poor Sleep: Poorly, Difficulty falling asleep Appetite: Good Gait/Station: Normal Psychiatric Findings - Problem List (Alpha 1, 2,3) (1) Alcohol use disorder Current Visit: Yes Status: Chronic (2) Opioid dependence on agonist therapy Current Visit: Yes Status: Chronic (3) Cannabis use disorder, mild, abuse Current Visit: Yes Status: Chronic (4) Cocaine dependence Current Visit: Yes Status: Chronic (5) Nicotine dependence Current Visit: Yes Status: Chronic (6) Substance induced mood disorder Current Visit: Yes Status: Chronic (7) PTSD (post-traumatic stress disorder) Current Visit: Yes Status: Chronic Comment: As per self-report. (8) History of bipolar disorder Current Visit: Yes Status: Chronic Comment: Non-adherent to medications and OPD care. (9) Insomnia Current Visit: Yes Status: Chronic (10) Non-compliance Current Visit: Yes Status: Chronic - Initial Treatment Plan Initial Treatment Plan: Records ([facility]) are revisited. Psychoeducation. Sleep hygiene. Detoxification in progress. Support. AA/NA meetings. Groups. Resumed : seroquel 100 mg po hs + zoloft 50 mg po daily. Side effects/benefits of both drugs are discussed with the patient. Mr Flannery is in agreement with this plan of care. 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 NO psychotropic refills on file at that pharmacy. Observation.
--- NOTE | 2019-11-13 11:50 | PN ---
[facility] CIWA - CIWA Score Nausea/Vomitin-Mild Nausea/No Vomiting Muscle Tremors: 3 Anxiety: 3 Agitation: 2 Paroxysmal Sweats: 2 Orientation: 0-Oriented Tacttile Disturbances: 0-None Auditory Disturbances: 0-None Visual Disturbances: 0-None Headache: 0-None Present CIWA-Ar Total Score: 11 [facility] Progress Note (SOAP) Subjective: Patient seen in bed and restless and complaints of withdrawals symptoms: sweats , tremors, etc. Objective: 11/13/19 11:47 Vitals: BP:112/69 P:61 R:18 T:97.7 Abnormal Lab Results 11/13/19 08:30 Chloride 109 H Anion Gap 6 L Creatinine 0.5 L Total Protein 6.3 L Assessment: 11/13/19 11:48 1. Alcohol dependence with withdrawal 2. Abnormalities in intial labs noted. Plan: 1. Continue alcohol detox protocol with librium. Encourage po fluids to relieve dehydration. 2. Abnormal labs are consistent with vomitting, poor nutrition and dehydration. Dr. Bhatt
--- NOTE | 2019-11-13 12:48 | EKG ---
Test Reason : Blood Pressure : / mmHG Vent. Rate : 051 BPM Atrial Rate : 051 BPM P-R Int : 130 ms QRS Dur : 090 ms QT Int : 448 ms P-R-T Axes : 073 075 072 degrees QTc Int : 412 ms SINUS BRADYCARDIA POOR DATA QUALITY, INTERPRETATION MAY BE ADVERSELY AFFECTED WHEN COMPARED WITH ECG OF 13-JUN-2017 15:04, NO SIGNIFICANT CHANGE WAS FOUND Confirmed by CALIXTO CHIANG MD ([id number]) on 11/13/2019 12:47:56 PM Referred By: Confirmed By:CALIXTO CHIANG MD
[2019-11-13] MEDS: chlordiazePOXIDE HCL 10 MG CAPSULE PO PRN (17:05)
[2019-11-13] MEDS: THIAMINE HCL 100 MG TABLET (FP) PO SCH (22:00)
[2019-11-13] MEDS: QUEtiapine FUMARATE 100 MG TABLET (FP) PO SCH (22:00)
[2019-11-14] MEDS ORDERED: METHADONE HCL 10 MG TABLET ONE (04:07)
[2019-11-14] MEDS ORDERED: METHADONE HCL 40 MG DISPERSABLE TABLET ONE (04:08)
[2019-11-14] MEDS: METHADONE 160 MG, METHADONE 20 MG PO SCH (06:17)
[2019-11-14] MEDS: chlordiazePOXIDE 5 MG CAPSULE PO SCH ×3 (06:18→22:42)
[2019-11-14] MEDS: PRENATAL VITAMINS W/ FOLIC ACID TABLET (FP) PO SCH (10:31)
[2019-11-14] MEDS: QUEtiapine FUMARATE 100 MG TABLET (FP) PO SCH ×2 (10:31→22:42)
[2019-11-14] MEDS: SERTRALINE HCL 50 MG TABLET (FP) PO SCH (10:31)
[2019-11-14] MEDS: CLOTRIMAZOLE 1% CREAM 15 GM TUBE TP SCH ×2 (10:31→22:41)
[2019-11-14] MEDS: NICOTINE 14 MG/24 HOURS TOPICAL PATCH TD SCH (10:32)
--- NOTE | 2019-11-14 13:05 | PN ---
S CIWA - CIWA Score Nausea/Vomitin-No Nausea/No Vomiting Muscle Tremors: 2 Anxiety: 3 Agitation: 0-Normal Activity Paroxysmal Sweats: 3 Orientation: 0-Oriented Tacttile Disturbances: 0-None Auditory Disturbances: 0-None Visual Disturbances: 0-None Headache: 0-None Present CIWA-Ar Total Score: 8 [facility] Progress Note (SOAP) Subjective: c/o sweats, anxiety, and shakes. Objective: 11/14/19 13:03 Vital Signs 11/14/19 11/14/19 06:54 09:11 Temperature 97.9 F 98.6 F Pulse Rate 81 91 H Respiratory 16 18 Rate Blood Pressure 128/78 112/78 Laboratory Last Values WBC 7.7 K/mm3 (4.0-10.0) 11/13/19 08:30 RBC 4.75 M/mm3 (4.00-5.60) 11/13/19 08:30 Hgb 13.4 GM/dL (11.7-16.9) 11/13/19 08:30 Hct 40.0 % (35.4-49) 11/13/19 08:30 MCV 84.2 fl (80-96) 11/13/19 08:30 MCH 28.2 pg (25.7-33.7) D 11/13/19 08:30 MCHC 33.5 g/dl (32.0-35.9) 11/13/19 08:30 RDW 14.1 % (11.9-15.9) D 11/13/19 08:30 Plt Count 207 K/MM3 (134-434) 11/13/19 08:30 MPV 9.5 fl (7.5-11.1) 11/13/19 08:30 Sodium 140 mmol/L (136-145) 11/13/19 08:30 Potassium 5.1 mmol/L (3.5-5.1) 11/13/19 08:30 Chloride 109 mmol/L (98-107) H 11/13/19 08:30 Carbon Dioxide 25 mmol/L (21-32) 11/13/19 08:30 Anion Gap 6 MMOL/L (8-16) L 11/13/19 08:30 BUN 16.6 mg/dL (7-18) 11/13/19 08:30 Creatinine 0.5 mg/dL (0.55-1.3) L 11/13/19 08:30 Est GFR (CKD-EPI)AfAm 160.45 11/13/19 08:30 Est GFR (CKD-EPI)NonAf 138.44 11/13/19 08:30 Random Glucose 88 mg/dL (74-106) 11/13/19 08:30 Calcium 8.8 mg/dL (8.5-10.1) 11/13/19 08:30 Total Bilirubin 0.4 mg/dL (0.2-1) 11/13/19 08:30 AST 25 U/L (15-37) 11/13/19 08:30 ALT 21 U/L (13-61) 11/13/19 08:30 Alkaline Phosphatase 92 U/L (45-117) 11/13/19 08:30 Total Protein 6.3 g/dl (6.4-8.2) L 11/13/19 08:30 Albumin 3.4 g/dl (3.4-5.0) 11/13/19 08:30 RPR Titer Nonreactive (NONREACTIVE) 11/13/19 08:30 Labs noted. Assessment: 11/14/19 13:04 AOX3, in no acute respiratory distress. Full ROM, ambulating in the unit. Withdrawal symptoms. Plan: continue detox.
[2019-11-14] MEDS: chlordiazePOXIDE HCL 10 MG CAPSULE PO PRN (20:12)
[2019-11-14] MEDS: THIAMINE HCL 100 MG TABLET (FP) PO SCH (22:42)
[2019-11-15] MEDS ORDERED: chlordiazePOXIDE HCL 10 MG CAPSULE PO PRN
[2019-11-15] MEDS ORDERED: METHADONE HCL 10 MG TABLET ONE (04:43)
[2019-11-15] MEDS ORDERED: METHADONE HCL 40 MG DISPERSABLE TABLET ONE (04:44)
[2019-11-15] MEDS: chlordiazePOXIDE HCL 10 MG CAPSULE PO SCH ×3 (05:32→22:41)
[2019-11-15] MEDS: METHADONE 160 MG, METHADONE 20 MG PO SCH (05:32)
[2019-11-15] MEDS: CLOTRIMAZOLE 1% CREAM 15 GM TUBE TP SCH ×2 (10:07→22:45)
[2019-11-15] MEDS: PRENATAL VITAMINS W/ FOLIC ACID TABLET (FP) PO SCH (10:07)
[2019-11-15] MEDS: QUEtiapine FUMARATE 100 MG TABLET (FP) PO SCH ×2 (10:07→22:42)
[2019-11-15] MEDS: SERTRALINE HCL 50 MG TABLET (FP) PO SCH (10:07)
[2019-11-15] MEDS: NICOTINE 14 MG/24 HOURS TOPICAL PATCH TD SCH (10:07)
--- NOTE | 2019-11-15 10:21 | PN ---
S CIWA - CIWA Score Nausea/Vomitin-No Nausea/No Vomiting Muscle Tremors: 1-None Visible, but Mission Anxiety: 1-Mildly Anxious Agitation: 0-Normal Activity Paroxysmal Sweats: 1-Minimal Palms Moist Orientation: 0-Oriented Tacttile Disturbances: 0-None Auditory Disturbances: 0-None Visual Disturbances: 0-None Headache: 1-Very Mild CIWA-Ar Total Score: 4 [facility] Progress Note (SOAP) Subjective: 39 years old male admitted on 11/12/19 for alcohol withdrawal sx management treating with librium detox regiment feeling better today reports punch wall with right hand and requests x ray right hand skin intact finger deformed brisk capillary refilled skin warm pink received methadone 180 mg today encourage the patient follow up with [facility] and cold compress for comfort Objective: 11/15/19 10:21 Vital Signs Temperature 97.7 F 11/15/19 06:33 Pulse Rate 81 11/15/19 06:33 Respiratory Rate 16 11/15/19 06:33 Blood Pressure 110/64 11/15/19 06:33 O2 Sat by Pulse Oximetry (%) Laboratory Last Values WBC 7.7 K/mm3 (4.0-10.0) 11/13/19 08:30 RBC 4.75 M/mm3 (4.00-5.60) 11/13/19 08:30 Hgb 13.4 GM/dL (11.7-16.9) 11/13/19 08:30 Hct 40.0 % (35.4-49) 11/13/19 08:30 MCV 84.2 fl (80-96) 11/13/19 08:30 MCH 28.2 pg (25.7-33.7) D 11/13/19 08:30 MCHC 33.5 g/dl (32.0-35.9) 11/13/19 08:30 RDW 14.1 % (11.9-15.9) D 11/13/19 08:30 Plt Count 207 K/MM3 (134-434) 11/13/19 08:30 MPV 9.5 fl (7.5-11.1) 11/13/19 08:30 Sodium 140 mmol/L (136-145) 11/13/19 08:30 Potassium 5.1 mmol/L (3.5-5.1) 11/13/19 08:30 Chloride 109 mmol/L (98-107) H 11/13/19 08:30 Carbon Dioxide 25 mmol/L (21-32) 11/13/19 08:30 Anion Gap 6 MMOL/L (8-16) L 11/13/19 08:30 BUN 16.6 mg/dL (7-18) 11/13/19 08:30 Creatinine 0.5 mg/dL (0.55-1.3) L 11/13/19 08:30 Est GFR (CKD-EPI)AfAm 160.45 11/13/19 08:30 Est GFR (CKD-EPI)NonAf 138.44 11/13/19 08:30 Random Glucose 88 mg/dL (74-106) 11/13/19 08:30 Calcium 8.8 mg/dL (8.5-10.1) 11/13/19 08:30 Total Bilirubin 0.4 mg/dL (0.2-1) 11/13/19 08:30 AST 25 U/L (15-37) 11/13/19 08:30 ALT 21 U/L (13-61) 11/13/19 08:30 Alkaline Phosphatase 92 U/L (45-117) 11/13/19 08:30 Total Protein 6.3 g/dl (6.4-8.2) L 11/13/19 08:30 Albumin 3.4 g/dl (3.4-5.0) 11/13/19 08:30 RPR Titer Nonreactive (NONREACTIVE) 11/13/19 08:30 lab noted Assessment: 11/15/19 10:21 alcohol withdrawal Plan: librium regiment
[2019-11-15] MEDS ORDERED: chlordiazePOXIDE 5 MG CAPSULE PO ONE (11:00)
[2019-11-15] MEDS: THIAMINE HCL 100 MG TABLET (FP) PO SCH (22:41)
[2019-11-16] MEDS ORDERED: METHADONE HCL 10 MG TABLET ONE (04:18)
[2019-11-16] MEDS ORDERED: METHADONE HCL 40 MG DISPERSABLE TABLET ONE (04:18)
[2019-11-16] MEDS ORDERED: chlordiazePOXIDE HCL 10 MG CAPSULE PO ONE (05:00)
[2019-11-16] MEDS: METHADONE 160 MG, METHADONE 20 MG PO SCH (06:36)
[2019-11-16 09:11] VITALS: BP 115/78; PULSE 107; TEMP 98
[2019-11-16] MEDS: CLOTRIMAZOLE 1% CREAM 15 GM TUBE TP SCH (10:17)
[2019-11-16] MEDS: PRENATAL VITAMINS W/ FOLIC ACID TABLET (FP) PO SCH (10:18)
[2019-11-16] MEDS: NICOTINE 14 MG/24 HOURS TOPICAL PATCH TD SCH (10:18)
[2019-11-16] MEDS: SERTRALINE HCL 50 MG TABLET (FP) PO SCH (10:18)
[2019-11-16] MEDS: QUEtiapine FUMARATE 100 MG TABLET (FP) PO SCH (10:19)
--- NOTE | 2019-11-16 13:58 | DS ---
[facility] Detox Discharge Summary Admission Date: 11/12/19 Discharge Date: 11/16/19 - History Present History: Alcohol Dependence Additional Comments: 39 years old male admitted on 11/12/19 for alcohol withdrawal sx management treated with librium detox regiment patient has completed librium regiment and tolerated well alert oriented x 3 seen by psychiatrist resume zoloft and seroquel on methadone 180mg po daily respiratory clear lungs bilaterally on auscultation extremities full range of motion skin warm and dry - Physical Exam Results Vital Signs: Vital Signs Temperature 98 F 11/16/19 08:48 Pulse Rate 107 H 11/16/19 08:48 Respiratory Rate 18 11/16/19 08:48 Blood Pressure 115/78 11/16/19 08:48 O2 Sat by Pulse Oximetry (%) Pertinent Admission Physical Exam Findings: alcohol withdrawal Laboratory Last Values WBC 7.7 K/mm3 (4.0-10.0) 11/13/19 08:30 RBC 4.75 M/mm3 (4.00-5.60) 11/13/19 08:30 Hgb 13.4 GM/dL (11.7-16.9) 11/13/19 08:30 Hct 40.0 % (35.4-49) 11/13/19 08:30 MCV 84.2 fl (80-96) 11/13/19 08:30 MCH 28.2 pg (25.7-33.7) D 11/13/19 08:30 MCHC 33.5 g/dl (32.0-35.9) 11/13/19 08:30 RDW 14.1 % (11.9-15.9) D 11/13/19 08:30 Plt Count 207 K/MM3 (134-434) 11/13/19 08:30 MPV 9.5 fl (7.5-11.1) 11/13/19 08:30 Sodium 140 mmol/L (136-145) 11/13/19 08:30 Potassium 5.1 mmol/L (3.5-5.1) 11/13/19 08:30 Chloride 109 mmol/L (98-107) H 11/13/19 08:30 Carbon Dioxide 25 mmol/L (21-32) 11/13/19 08:30 Anion Gap 6 MMOL/L (8-16) L 11/13/19 08:30 BUN 16.6 mg/dL (7-18) 11/13/19 08:30 Creatinine 0.5 mg/dL (0.55-1.3) L 11/13/19 08:30 Est GFR (CKD-EPI)AfAm 160.45 11/13/19 08:30 Est GFR (CKD-EPI)NonAf 138.44 11/13/19 08:30 Random Glucose 88 mg/dL (74-106) 11/13/19 08:30 Calcium 8.8 mg/dL (8.5-10.1) 11/13/19 08:30 Total Bilirubin 0.4 mg/dL (0.2-1) 11/13/19 08:30 AST 25 U/L (15-37) 11/13/19 08:30 ALT 21 U/L (13-61) 11/13/19 08:30 Alkaline Phosphatase 92 U/L (45-117) 11/13/19 08:30 Total Protein 6.3 g/dl (6.4-8.2) L 11/13/19 08:30 Albumin 3.4 g/dl (3.4-5.0) 11/13/19 08:30 RPR Titer Nonreactive (NONREACTIVE) 11/13/19 08:30 lab noted - Treatment Hospital Course: Detox Protocol Followed, Detoxed Safely, Responded well, Discharged Condition Good, Rehab Referral Accepted Patient has Accepted a Rehab Referral to: [facility] - Medication Discharge Medications: Ambulatory Orders Gabapentin [Neurontin -] 400 mg PO Q8H 06/13/17 Quetiapine Fumarate [Seroquel -] 200 mg PO BID 06/13/17 Sertraline HCl [Zoloft -] 150 mg PO DAILY 06/13/17 Methadone [Dolophine -] 80 mg PO DAILY 11/12/19 Olanzapine [Zyprexa] 10 mg PO HS 11/12/19 - Diagnosis (1) Asthma Status: Chronic Qualifiers: Asthma severity: mild Asthma persistence: intermittent Asthma complication type: with status asthmaticus Qualified Code(s): J45.22 - Mild intermittent asthma with status asthmaticus (2) GERD (gastroesophageal reflux disease) Status: Chronic Qualifiers: Esophagitis presence: without esophagitis Qualified Code(s): K21.9 - Gastro -esophageal reflux disease without esophagitis (3) Hypertension Status: Chronic Qualifiers: Hypertension type: essential hypertension Qualified Code(s): I10 - Essential (primary) hypertension (4) Methadone maintenance therapy patient Status: Chronic (5) Nicotine dependence Status: Acute Qualifiers: Nicotine product type: cigarettes Substance use status: in withdrawal Qualified Code(s): F17.213 - Nicotine dependence, cigarettes, with withdrawal (6) Substance induced mood disorder Status: Suspected - AMA Did Patient Leave Against Medical Advice: No
== END 2019-11-16 09:37 | disposition home or self-care (01) | DRG 773 ==
LOC: YASAS 12:26 → Y3N 17:16
PROVIDERS: ADMIT Allergy & Immunology; ATTEND Allergy & Immunology
PROC: HZ2ZZZZ Detoxification Services for Substance Abuse Treatment (ICD-10-PCS; principal; 2019-11-12)
DX: F10.230 Alcohol dependence with withdrawal, uncomplicated (principal); F11.20 Opioid dependence, uncomplicated; F17.213 Nicotine dependence, cigarettes, with withdrawal; F14.20 Cocaine dependence, uncomplicated; F12.10 Cannabis abuse, uncomplicated; F19.24 Other psychoactive substance dependence with psychoactive substance-induced mood disorder; F31.9 Bipolar disorder, unspecified; F43.10 Post-traumatic stress disorder, unspecified; G40.909 Epilepsy, unspecified, not intractable, without status epilepticus; I10 Essential (primary) hypertension; J45.22 Mild intermittent asthma with status asthmaticus; K21.9 Gastro-esophageal reflux disease without esophagitis; M54.5 Low back pain; G89.29 Other chronic pain; G47.00 Insomnia, unspecified; Z91.5 Personal history of self-harm; Z91.19 Patient's noncompliance with other medical treatment and regimen; Z88.8 Allergy status to other drugs, medicaments and biological substances
CPT/HCPCS: 36415; 80053; 85027; 86593; 93005; 93010